=== PATIENT | female | born 1985 | race Caucasian/White ===

== ENCOUNTER 2024-05-25 17:28 | Emergency (ER) | payer BC ==
[~2024-05-25] VITALS: Ht 162.6 cm; Wt 77.3 kg
[2024-05-25 17:55] VITALS: BP 114/65; TEMP 98.5
[2024-05-25 18:35] VITALS: PULSE 72
== END 2024-05-25 18:35 | disposition home or self-care (01) ==
LOC: COL.ER 17:28
DX: S61.011A Laceration without foreign body of right thumb without damage to nail, initial encounter (principal); W27.4XXA Contact with kitchen utensil, initial encounter